=== PATIENT | female | born 1990 | race Caucasian/White ===

== ENCOUNTER → 2020-10-14 13:36 | Outpatient (CLI) | payer OTHER, SELFPAY ==
[2020-10-14 13:42] LABS: Basophils # 0.1 K/mm3 (0-0.2); Basophils % 0.7 % (0.1-2.0); Eosinophils # 0.2 K/mm3 (0.0-0.4); Eosinophils % 3.4 % (0.1-12.0); Hematocrit 41.9 % (37.0-47.0); Hemoglobin 14.5 g/dL (12.2-16.2); Lymphocytes # 1.8 K/mm3 (0.7-4.5); Lymphocytes % 27.6 % (10-50); Mean Corpuscular HGB Conc 34.7 g/dL (31.8-35.4); Mean Corpuscular Hemoglobin 32.6 pg (27.0-31.2); Mean Corpuscular Volume 94.1 fl (81-99); Mean Platelet Volume 8.3 fl (7.4-10.4); Monocytes # 0.2 K/mm3 (0.1-1.0); Monocytes % 3.3 % (1.7-9.3); Neutrophils # 4.3 K/mm3 (1.8-7.8); Platelet Count 225 K/mm3 (142-424); Red Blood Count 4.45 M/mm3 (4.20-5.40); Red Cell Distribution Width 12.7 % (11.5-17.5); White Blood Count 6.6 K/mm3 (4.8-10.8)
[2020-10-14 14:17] LABS: Alanine Aminotransferase 19 U/L (12-78); Albumin Level 4.6 g/dl (3.5-5.0); Albumin/Globulin Ratio 1.9 (1.1-1.8); Alkaline Phosphatase 62 U/L (38-126); Anion Gap 10.8 mEq/L (5-15); Aspartate Amino Transferase 24 U/L (14-36); Bilirubin,Total 0.4 mg/dl (0.2-1.3); Blood Urea Nitrogen 11 mg/dl (7-17); Calcium 9.4 mg/dl (8.4-10.2); Carbon Dioxide 24 mmol/L (22.0-30.0); Chloride 108 mmol/L (98-107); Chol/HDL Ratio 3.2 (1-3.5); Cholesterol 176 mg/dl (140-200); Estimated Glomerular Filt Rate 100 ml/min (>60); GFR (African American) 121 ML/MIN (>60); Globulin 2.4 g/dL (1.3-3.2); Glucose 91 mg/dl (74-100); HDL Cholesterol 55 mg/dl (40-60); Potassium 3.8 mmoL/L (3.5-5.1); Sodium 139 mmol/L (136-145); Triglycerides 77 mg/dl (30-150); VLDL Cholesterol 15 mg/dL (0-40)
[2020-10-14 14:30] LABS: Direct LDL Cholesterol 106.17 mg/dL (100-129)
[2020-10-14 14:35] LABS: 25-OH Vitamin D, Total 48.1 ng/mL (30-100)
[2020-10-14 14:38] LABS: T4 (Thyroxine) 9.1 ug/dl (5.53-11.0)
[2020-10-14 14:48] LABS: Thyroid Stimulating Hormone 0.77 uIU/mL (0.465-4.68)
[2020-10-16 05:28] LABS: Lithium (Eskalith(R)) <0.1 mmol/L (0.6-1.2)
== END ==
PROVIDERS: Visit Provider Family Medicine
DX: F31.60 Bipolar disorder, current episode mixed, unspecified (principal); Z68.28 Body mass index [BMI] 28.0-28.9, adult; Z51.81 Encounter for therapeutic drug level monitoring
CPT/HCPCS: 80053; 80061; 80178; 82306; 84436; 84443; 85025

== ENCOUNTER 2022-01-20 14:19 | Emergency (ER) | payer OTHER, SELFPAY ==
[2022-01-20 14:25] VITALS: BP 121/71; PULSE 114; RESP 16; TEMP 36.7; O2SAT 100; BMI 28.3
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
[2022-01-20 15:10] VITALS: BP 121/71; PULSE 114; RESP 16; TEMP 36.7; O2SAT 100; BMI 28.1
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
[2022-01-20 15:56] VITALS: BP 121/71; PULSE 114; RESP 16; TEMP 36.7; O2SAT 100
== END 2022-01-20 16:05 | disposition home or self-care (01) ==
PROVIDERS: Emergency Provider Nurse Practitioner
DX: S82.65XA Nondisplaced fracture of lateral malleolus of left fibula, initial encounter for closed fracture (principal); J45.909 Unspecified asthma, uncomplicated; F41.9 Anxiety disorder, unspecified; F17.290 Nicotine dependence, other tobacco product, uncomplicated; Z79.51 Long term (current) use of inhaled steroids
CPT/HCPCS: 73610; 99213; G0463

== ENCOUNTER → 2022-02-10 14:58 | Outpatient (CLI) | payer OTHER, SELFPAY ==
--- NOTE | 2022-02-10 15:02 | XR_ITS ---
FINAL REPORT CLINICAL HISTORY: x rays out of boot COMPARISON: January 20, 2022 FINDINGS: LEFT ANKLE: Three views of the left ankle were obtained. There has been resolution of the soft tissue swelling. The mortise is intact. There is a healing fracture of the inferior lateral malleolus. IMPRESSION: Healing fracture of the inferior lateral malleolus. Reviewed, Interpreted and Dictated by Juan Jose Burrows MD Transcribed by Dirk Gordon Authenticated and [facility]
== END ==
PROVIDERS: Visit Provider Orthopaedic Surgery
DX: S82.62XA Displaced fracture of lateral malleolus of left fibula, initial encounter for closed fracture (principal)
CPT/HCPCS: 73610

== ENCOUNTER → 2022-03-03 12:45 | Outpatient (CLI) | payer OTHER, SELFPAY ==
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
== END ==
PROVIDERS: Visit Provider Orthopaedic Surgery
DX: S82.65XA Nondisplaced fracture of lateral malleolus of left fibula, initial encounter for closed fracture (principal)
CPT/HCPCS: 73610

== ENCOUNTER 2024-07-04 14:42 | Outpatient (CLI) | payer BC, SELFPAY ==
[2024-07-04 15:05] VITALS: PULSE 72; PULSE 80
[2024-07-04] MEDS: ALBUTEROL 0.083% 2.5 MG/3 ML NEB IH (15:05)
== END 2024-07-04 23:59 | disposition home or self-care (01) ==
PROVIDERS: Visit Provider Nurse Practitioner Family
DX: R06.02 Shortness of breath (principal)
CPT/HCPCS: 94060; 94640; J7613